=== PATIENT | female | born 1990 | race African-American/Black ===

== ENCOUNTER 2017-05-26 18:54 | Inpatient (IN) ==
[2017-05-26 19:28] LABS: Apearance,Urine Slightly Hazy (Clear); Bilirubin,Urine Negative (Negative); Blood, Urine Negative (Negative); Glucose,Urine (UA) Negative (Negative); Ketones,Urine 20 mg/dL (Negative); Mucus,Urine Few /LPF (Occasional); Nitrite,Urine Negative (Negative); Protein,Urine 30 MG/DL; RBC,Urine 4 /HPF (0-4); Squamous Epithelial Cell,Urine Occasional /HPF (0-10); Urine Color Yellow (Yellow); Urine Specific Gravity 1.023 (1.001-1.035); WBC,Urine 3 /HPF (0-6)
[2017-05-26] MEDS ORDERED: ONDANSETRON 4 MG/2 ML VIAL IV ONE (20:40)
[2017-05-26] MEDS ORDERED: MEPERIDINE 50 MG/1 ML VIAL IV ONE (20:40)
[2017-05-26] MEDS ORDERED: LABETALOL 100 MG TABLET PO ONE (20:41)
[2017-05-26] MEDS ORDERED: LACTATED RINGERS 1,000 ML IV ONE (20:41)
[2017-05-26] MEDS ORDERED: MEPERIDINE 50 MG/1 ML VIAL IV PRN (22:41)
[2017-05-27] MEDS ORDERED: ACETAMINOPHEN 500 MG TABLET PO PRN (01:52)
[2017-05-27] MEDS: LACTATED RINGERS 1,000 ML IV SCH ×3 (06:29→16:28)
[2017-05-27] MEDS ORDERED: LABETALOL 100 MG TABLET ONE (07:50)
[2017-05-27] MEDS ORDERED: ONDANSETRON 4 MG/2 ML VIAL IV PRN ×2 (08:56→22:34)
[2017-05-27] MEDS ORDERED: BUTORPHANOL 1 MG/ML VIAL IV PRN (08:56)
[2017-05-27] MEDS ORDERED: BUTORPHANOL 2 MG/ML VIAL IV PRN (08:56)
[2017-05-27] MEDS ORDERED: LABETALOL 100 MG TABLET PO SCH (09:00)
[2017-05-27] MEDS ORDERED: OXYTOCIN/LR 20 UNIT/1,000 ML BAG IV SCH (09:00)
[2017-05-27 09:19] LABS: Basophils % 0.3 % (0.0-0.8); Eosinophils % 0.1 % (0.00-10.9); Hematocrit 23.7 VOL% (35.7-47.0); Hemoglobin 7.6 GM/DL (12.0-16.0); Immature Granulocytes % 0.4 %; Immature Granulocytes Absolute 0.03 #; Lymphocytes # 1.1 10*3/uL (1.4-4.0); Lymphocytes % 13.4 % (21.3-54.2); Mean Corpuscular HGB Conc 32.1 GM/DL (32-36); Mean Corpuscular Hemoglobin 24 PG (27-34); Mean Corpuscular Volume 73.6 FL (87-102); Monocytes # 0.5 10*3/uL (0.11-0.8); Monocytes % 5.9 % (1.7-12.7); Neutrophils # 6.2 10*3/uL (1.4-7.4); Neutrophils % 79.9 % (38.7-73.9); Platelet Count 219 T/CUMM (130-400); Red Blood Count 3.22 MC/CUMM (3.8-5.5); Red Cell Distribution Width 14.2 % (9.3-17.3); White Blood Count 7.8 T/CUMM (4-12)
[2017-05-27 09:33] LABS: INR 0.9; PT Patient Result 9.7 SECS; Partial Thromboplastin Time 27.5 SECS (0-40)
[2017-05-27] MEDS ORDERED: LACTATED RINGERS 1,000 ML IV ONE (09:45)
[2017-05-27] MEDS ORDERED: FAMOTIDINE 20 MG/2 ML VIAL IV ONE (09:45)
[2017-05-27] MEDS ORDERED: PROMETHAZINE 25 MG/1 ML VIAL IM ONE (09:45)
[2017-05-27] MEDS ORDERED: CITRIC ACID/SODIUM CITRATE 30 ML UDCUP PO ONE (09:45)
[2017-05-27] MEDS ORDERED: diphenhydrAMINE 50 MG/1 ML VIAL IV PRN ×2 (09:45)
[2017-05-27] MEDS ORDERED: hydrOXYzine HCL 25 MG/1 ML VIAL IM PRN (09:45)
[2017-05-27] MEDS ORDERED: ePHEDrine 50 MG/ML AMP IV PRN (09:45)
[2017-05-27 10:00] LABS: Alanine Aminotransferase < 9 U/L (13-56); Albumin 2.8 G/DL (3.4-5.0); Alkaline Phosphatase 142 U/L (45-117); Aspartate Amino Transferase 11 U/L (0-37); Bilirubin,Total < 0.39 MG/DL (0.2-1.0); Blood Urea Nitrogen 5 MG/DL (7-18); Calcium 8.4 MG/DL (8.5-10.1); Glucose 87 MG/DL (74-106); Osmolality,Calculated 268.8 MOS/KG (273-304); Potassium 3.6 MMOL/L (3.5-5.1); Sodium 137 MMOL/L (136-145); Total Protein 5.9 G/DL (6.4-8.3); Uric Acid 4.2 MG/DL (2.6-6.0)
[2017-05-27] MEDS ORDERED: LACTATED RINGERS 1,000 ML IV SCH (10:00)
[2017-05-27] MEDS ORDERED: fentaNYL 2 MCG/ROPIV 0.2% EPID 150 ML EPIDURAL SCH (10:00)
[2017-05-27] MEDS ORDERED: miSOPROStol 200 MCG TABLET ONE (13:36)
[2017-05-27 13:42] LABS: Apearance,Urine CLEAR (Clear); Bilirubin,Urine Negative (Negative); Blood, Urine Negative (Negative); Glucose,Urine (UA) Negative (Negative); Ketones,Urine 20 mg/dL (Negative); Mucus,Urine Occasional /LPF (Occasional); Nitrite,Urine Negative (Negative); Protein,Urine Negative; RBC,Urine <1 /HPF (0-4); Urine Color Straw (Yellow); Urine Specific Gravity 1.008 (1.001-1.035); Urine Urobilinogen < 2.0 EU/DL (0.2-1.0); WBC,Urine <1 /HPF (0-6)
[2017-05-27] MEDS ORDERED: hydrALAZINE 20 MG/1 ML VIAL IV ONE ×2 (14:00→15:08)
[2017-05-27 14:11] LABS: Cord Arterial Blood HCO3 19.9 MMOL/L
[2017-05-27 14:14] LABS: Cord Venous Blood HCO3 21.4 MMOL/L; Cord Venous Blood PCO2 42.3 MMHG; Cord Venous Blood PO2 29.2
[2017-05-27] MEDS ORDERED: ACETAMINOPHEN/CODEINE 300-30 MG TABLET PO PRN (15:16)
[2017-05-27] MEDS ORDERED: BISACODYL 10 MG SUPP RECTAL PRN (16:54)
[2017-05-27] MEDS ORDERED: LANOLIN 50% CREAM 0.3 OZ TUBE TOP PRN (16:54)
[2017-05-27] MEDS ORDERED: MEASLES/MUMPS/RUBELLA VACCINE 0.5 ML VIAL SUBCUT ONE (16:54)
[2017-05-27] MEDS ORDERED: OXYTOCIN/LR 20 UNIT/1,000 ML BAG IV ONE (16:54)
[2017-05-27] MEDS ORDERED: ACETAMINOPHEN 325 MG TABLET PO PRN (16:54)
[2017-05-27] MEDS ORDERED: oxyCODONE/ACETAMINOPHEN 5-325 MG TABLET PO PRN (16:54)
[2017-05-27] MEDS ORDERED: RHO(D) IMMUNE GLOBULIN 300 MCG SYRINGE IM ONE (16:54)
[2017-05-27] MEDS ORDERED: BENZOCAINE 20%/MENTHOL 0.5% SPRAY 56 GM CAN TOP PRN (16:54)
[2017-05-27] MEDS ORDERED: HYDROCORTISONE 2.5% RECTAL CREAM 30 GM TUBE TOP PRN (16:54)
[2017-05-27] MEDS ORDERED: WITCH HAZEL PADS 100/JAR TOP PRN (16:54)
[2017-05-27] MEDS ORDERED: IBUPROFEN 800 MG TABLET PO PRN (16:54)
[2017-05-27] MEDS ORDERED: DIPH/TET/ACEL PERT BOOSTER VACCINE 0.5 ML VIAL IM ONE (16:54)
[2017-05-27] MEDS: FUROSEMIDE 40 MG/4 ML VIAL IV SCH ×2 (17:16→22:44)
[2017-05-27] MEDS: oxyCODONE/ACETAMINOPHEN 5-325 MG TABLET PO PRN (17:23)
[2017-05-27] MEDS: FERROUS SULFATE 325 MG TABLET PO SCH (20:22)
[2017-05-27] MEDS: DOCUSATE SODIUM 100 MG CAPSULE PO SCH (20:23)
[2017-05-28] MEDS: oxyCODONE/ACETAMINOPHEN 5-325 MG TABLET PO PRN ×2 (03:53→20:08)
[2017-05-28 06:03] LABS: Basophils % 0.3 % (0.0-0.8); Eosinophils % 0.3 % (0.00-10.9); Hemoglobin 9.9 GM/DL (12.0-16.0); Immature Granulocytes % 0.5 %; Immature Granulocytes Absolute 0.05 #; Lymphocytes # 1.2 10*3/uL (1.4-4.0); Lymphocytes % 10.7 % (21.3-54.2); Mean Corpuscular HGB Conc 30.9 GM/DL (32-36); Mean Corpuscular Hemoglobin 23 PG (27-34); Mean Corpuscular Volume 74.4 FL (87-102); Monocytes # 0.5 10*3/uL (0.11-0.8); Monocytes % 4.9 % (1.7-12.7); NRBC # 0.04 10*3/uL; Neutrophils # 9.1 10*3/uL (1.4-7.4); Neutrophils % 83.3 % (38.7-73.9); Platelet Count 287 T/CUMM (130-400); Red Cell Distribution Width 14.3 % (9.3-17.3); White Blood Count 10.9 T/CUMM (4-12)
[2017-05-28] MEDS: FUROSEMIDE 40 MG/4 ML VIAL IV SCH (06:12)
[2017-05-28] MEDS: FERROUS SULFATE 325 MG TABLET PO SCH ×2 (08:48→20:08)
[2017-05-28] MEDS: DOCUSATE SODIUM 100 MG CAPSULE PO SCH ×2 (08:50→20:08)
[2017-05-29] MEDS: oxyCODONE/ACETAMINOPHEN 5-325 MG TABLET PO PRN (03:54)
[2017-05-29] MEDS ORDERED: oxyCODONE/ACETAMINOPHEN 5-325 MG TABLET PO PRN (07:50)
[2017-05-29] MEDS: FERROUS SULFATE 325 MG TABLET PO SCH (08:00)
[2017-05-29] MEDS: DOCUSATE SODIUM 100 MG CAPSULE PO SCH (08:00)
[2017-05-29 08:13] VITALS: BP 140/80
[2017-05-29] MEDS ORDERED: INFLUENZA VIRUS VACCINE 0.5 ML SYRINGE IM ONE (11:34)
== END 2017-05-29 12:05 | disposition home or self-care (01) | DRG 560 ==
LOC: N.LDOUT 18:54 → N.LD 18:55 → N.OB 05-27 16:43
PROVIDERS: ADMIT Obstetrics & Gynecology; ATTEND Obstetrics & Gynecology